=== PATIENT | female | born 1975 | race African-American/Black ===

== ENCOUNTER 2017-08-23 01:42 | Emergency (ER) | payer OTHER ==
[~2017-08-23] VITALS: Ht 182.9 cm; Wt 113.0 kg
[2017-08-23 01:45] VITALS: BP 147/87
== END 2017-08-23 03:55 | disposition left against medical advice (07) ==
LOC: ER 01:42
DX: Z53.21 Procedure and treatment not carried out due to patient leaving prior to being seen by health care provider (principal); F31.9 Bipolar disorder, unspecified; Z88.0 Allergy status to penicillin